=== PATIENT | male | born 1965 | race Caucasian/White ===

== ENCOUNTER 2020-02-07 12:31 | Emergency (ER) | payer BC ==
[~2020-02-07] VITALS: Ht 182.9 cm; Wt 109.8 kg
[2020-02-07 12:41] VITALS: Ht 182.9 cm; Wt 109.8 kg
[2020-02-07 13:07] LABS: BASOPHIL % 0.7 % (0-2); PLATELET COUNT 236 x10^3mcL (130-400)
[2020-02-07 13:08] LABS: RED CELL DISTRIBUTION WIDTH 15.6 % (11.5-14.5)
[2020-02-07 13:22] LABS: microscopic required? NO
[2020-02-07 13:26] LABS: CALCIUM 8.1 mg/dL (8.5-10.1); CHLORIDE SERUM 103 mmol/L (98-107); CREATININE SERUM 1.3 mg/dL (0.7-1.3); GFR1 > 60 mL/min; GLUCOSE SERUM 114 mg/dL (74-106); POTASSIUM SERUM 3.8 mmol/L (3.5-5.1); SODIUM SERUM 136 mmol/L (136-145)
[2020-02-07 13:30] LABS: ALBUMIN 3.6 g/dL (3.4-5.0); ALKALINE PHOSPHATASE 105 U/L (46-116); ALT/SGPT 28 U/L (16-63); AST/SGOT 14 U/L (15-37); BILIRUBIN TOTAL 0.3 mg/dL (0.20-1.00); CHOLESTEROL 165 mg/dL (<200); LIPASE 168 IU/L (73-393); TOTAL PROTEIN, SERUM 7.3 g/dL (6.4-8.2)
[2020-02-07 13:32] LABS: HDL CHOLESTEROL 33 mg/dL (40-60); TRIGLYCERIDES 211 mg/dL (<150)
[2020-02-07 13:34] LABS: UA SPECIFIC GRAVITY 1.015 (1.005-1.035); urine erythrocyte NEGATIVE (NEGATIVE)
[2020-02-07 14:45] VITALS: BP 99/69
== END 2020-02-07 14:45 | disposition home or self-care (01) ==
LOC: ED 12:31
PROVIDERS: Specialist
DX: R19.7 Diarrhea, unspecified (principal); R42 Dizziness and giddiness; R51 Headache
CPT/HCPCS: J1885